=== PATIENT | female | born 1980 | race Caucasian/White ===

== ENCOUNTER 2017-10-16 19:40 | Emergency (ER) | payer MEDICAID, OTHER ==
[~2017-10-16] VITALS: Ht 170.2 cm; Wt 64.0 kg
[~2017-10-16 19:40] MED LIST: ACYC-113 PO; ALPR2TAB2 PO; HYDR-3307 PO; IBUPROFEN PO; ZOLP10TA PO
[2017-10-16 20:45] LABS: BASOPHILS # (AUTO) 0.04 x10^3/uL (0-0.1); BASOPHILS % (AUTO) 1 % (0-1); EOSINOPHILS # (AUTO) 0.09 x10^3/uL (0-0.4); EOSINOPHILS % (AUTO) 1 % (1-7); LYMPHOCYTES # (AUTO) 2.43 x10^3/uL (1-3.4); LYMPHOCYTES % (AUTO) 35 % (22-44); MD NO; MEAN CORPUSCULAR HEMOGLOBIN 30.3 pg (27.0-34.8); MEAN CORPUSCULAR HGB CONC 34.2 g/dL (32.4-35.8); MEAN CORPUSCULAR VOLUME 88.6 fL (80-100); MEAN PLATELET VOLUME 8.1 fL (7.4-10.4); MONOCYTES # (AUTO) 0.42 x10^3/uL (0.2-0.8); MONOCYTES % (AUTO) 6 % (2-9); NEUTROPHILS # (AUTO) 3.98 x10^3/uL (1.8-6.8); NEUTROPHILS % (AUTO) 57 % (42-75); PLATELET COUNT 317 x10^3/uL (130-400); RED BLOOD COUNT 4.76 x10^6/uL (3.82-5.3); RED CELL DISTRIBUTION WIDTH 13.2 % (9.6-15.2)
[2017-10-16 20:50] LABS: ALBUMIN 3.6 g/dL (3.4-5.0); ANION GAP 8 mmol/L (5-15); CALCIUM 9.1 mg/dL (8.5-10.1); CHLORIDE 109 mmol/L (98-107); SALICYLATE LEVEL 2.5 mg/dL (2.8-20.0)
[2017-10-16 20:55] LABS: ALANINE AMINOTRANSFERASE 27 U/L (12-78); ALKALINE PHOSPHATASE 61 U/L (45-117); BILIRUBIN,TOTAL 0.2 mg/dL (0.2-1.0); CREATININE 1.04 mg/dL (0.55-1.02); TOTAL PROTEIN 7.1 g/dL (6.4-8.2)
[2017-10-16 20:58] LABS: ACETAMINOPHEN < 2 mcg/mL (10-30)
[2017-10-16 21:03] LABS: CULTURE INDICATED? YES; MICROSCOPIC INDICATED
[2017-10-16 21:12] LABS: AMPHETAMINE SCREEN, URINE Positive (Negative); BARBITURATE SCREEN, URINE Negative (Negative); BENZODIAZEPINE SCREEN, URINE Negative (Negative); CANNABINOID SCREEN, URINE Negative (Negative); COCAINE SCREEN, URINE Negative (Negative); METHADONE SCREEN, URINE Negative (Negative); OPIATE SCREEN, URINE Negative (Negative)
[2017-10-16] MEDS ORDERED: ACETAMINOPHEN 325 MG TABLET PO PRN (23:30)
[2017-10-16] MEDS ORDERED: DOCUSATE 100 MG CAPSULE PO PRN (23:30)
[2017-10-17] MEDS ORDERED: NICOTINE 21 MG/24 HR PATCH.TD24 ONE (04:22)
[2017-10-17] MEDS: NICOTINE 21 MG/24 HR PATCH.TD24 TD SCH (04:25)
[2017-10-17] MEDS ORDERED: LORazepam 1MG TABLET ONE ×3 (10:00→21:16)
[2017-10-17] MEDS: LORazepam 1MG TABLET PO PRN ×3 (10:06→21:15)
[2017-10-18] MEDS ORDERED: NICOTINE 21 MG/24 HR PATCH.TD24 ONE (03:51)
[2017-10-18] MEDS: NICOTINE 21 MG/24 HR PATCH.TD24 TD SCH (03:52)
[2017-10-18] MEDS ORDERED: LORazepam 1MG TABLET ONE ×5 (03:53→21:44)
[2017-10-18] MEDS: LORazepam 1MG TABLET PO PRN ×5 (03:55→21:53)
[2017-10-19] MEDS ORDERED: LORazepam 1MG TABLET ONE ×2 (10:50→18:55)
[2017-10-19] MEDS: LORazepam 1MG TABLET PO PRN ×2 (10:55→18:58)
[2017-10-19] MEDS ORDERED: ZIPRASIDONE 20 MG INJ IM ONE ×2 (12:18→13:00)
[2017-10-19] MEDS ORDERED: ZIPRASIDONE 20 MG INJ IM PRN (13:30)
[2017-10-19] MEDS ORDERED: NICOTINE 21 MG/24 HR PATCH.TD24 ONE (18:59)
[2017-10-19] MEDS: NICOTINE 21 MG/24 HR PATCH.TD24 TD SCH (19:00)
[2017-10-20] MEDS ORDERED: LORazepam 1MG TABLET ONE ×2 (08:28→13:08)
[2017-10-20] MEDS: LORazepam 1MG TABLET PO PRN ×2 (08:40→13:14)
[2017-10-20] MEDS ORDERED: NICOTINE 21 MG/24 HR PATCH.TD24 ONE ×2 (18:41→20:09)
[2017-10-20] MEDS ORDERED: ZIPRASIDONE 20 MG INJ IM ONE (18:42)
[2017-10-20] MEDS ORDERED: OLANZAPINE 10 MG TABLET ONE (20:09)
[2017-10-20] MEDS: NICOTINE 21 MG/24 HR PATCH.TD24 TD SCH (20:35)
[2017-10-20] MEDS ORDERED: OLANZAPINE 10 MG TABLET PO SCH (21:00)
[2017-10-21 10:35] VITALS: BP 113/71
[2017-10-21] MEDS ORDERED: OLAN10TA9 PO (11:07)
== END 2017-10-21 12:13 | disposition home or self-care (01) ==
LOC: ED 22:38 → EDIP 23:08 → UNDOADMIN 23:08
DX: R45.851 Suicidal ideations (principal); F20.9 Schizophrenia, unspecified; F31.9 Bipolar disorder, unspecified; Z79.899 Other long term (current) drug therapy
CPT/HCPCS: 36415; 80053; 80307; 80329; 81001; 84703; 85025; 87086; 99284; J3486; 99285; G0480

== ENCOUNTER 2017-10-31 22:11 | Observation (INO) | payer MEDICAID ==
[~2017-10-31] VITALS: Ht 170.2 cm; Wt 63.2 kg
[~2017-10-31 22:11] MED LIST changes: +OLAN10TA9 PO
[2017-10-31 23:01] LABS: AMPHETAMINE SCREEN, URINE Negative (Negative); BARBITURATE SCREEN, URINE Negative (Negative); BENZODIAZEPINE SCREEN, URINE Negative (Negative); CANNABINOID SCREEN, URINE Negative (Negative); COCAINE SCREEN, URINE Negative (Negative); METHADONE SCREEN, URINE Negative (Negative); OPIATE SCREEN, URINE Negative (Negative)
[2017-10-31 23:03] LABS: BASOPHILS # (AUTO) 0.05 x10^3/uL (0-0.1); BASOPHILS % (AUTO) 1 % (0-1); EOSINOPHILS # (AUTO) 0.12 x10^3/uL (0-0.4); EOSINOPHILS % (AUTO) 2 % (1-7); LYMPHOCYTES # (AUTO) 2.53 x10^3/uL (1-3.4); LYMPHOCYTES % (AUTO) 36 % (22-44); MD NO; MEAN CORPUSCULAR HEMOGLOBIN 29.5 pg (27.0-34.8); MEAN CORPUSCULAR HGB CONC 33.3 g/dL (32.4-35.8); MEAN CORPUSCULAR VOLUME 88.4 fL (80-100); MEAN PLATELET VOLUME 7.7 fL (7.4-10.4); MONOCYTES # (AUTO) 0.47 x10^3/uL (0.2-0.8); MONOCYTES % (AUTO) 7 % (2-9); NEUTROPHILS # (AUTO) 3.87 x10^3/uL (1.8-6.8); NEUTROPHILS % (AUTO) 55 % (42-75); PLATELET COUNT 251 x10^3/uL (130-400); RED BLOOD COUNT 4.48 x10^6/uL (3.82-5.3); RED CELL DISTRIBUTION WIDTH 13.7 % (9.6-15.2)
[2017-10-31 23:14] LABS: ALBUMIN 3.4 g/dL (3.4-5.0); ANION GAP 5 mmol/L (5-15); CALCIUM 8.2 mg/dL (8.5-10.1); CHLORIDE 113 mmol/L (98-107); CREATININE 0.68 mg/dL (0.55-1.02); SALICYLATE LEVEL 1.9 mg/dL (2.8-20.0)
[2017-10-31 23:29] LABS: ACETAMINOPHEN < 2 mcg/mL (10-30)
[2017-11-01] MEDS ORDERED: POLYETHYLENE GLYCOL 17 GM PACKET PO PRN (08:00)
[2017-11-01 08:25] LABS: THYROID STIMULATING HORMONE 2.42 mIU/L (0.358-3.740)
[2017-11-01] MEDS ORDERED: OLANZAPINE 10 MG TABLET PO SCH (09:00)
[2017-11-01 17:11] VITALS: BP 116/70
[2017-11-01 19:33] VITALS: BP 123/80
[2017-11-01] MEDS: SENNA/DOCUSATE TABLET PO SCH (20:51)
[2017-11-01] MEDS: OLANZAPINE 10 MG TABLET PO SCH (21:08)
[2017-11-02 05:46] LABS: ALBUMIN 3.3 g/dL (3.4-5.0); ANION GAP 9 mmol/L (5-15); CALCIUM 8.8 mg/dL (8.5-10.1); CHLORIDE 111 mmol/L (98-107)
[2017-11-02 05:50] LABS: ALANINE AMINOTRANSFERASE 17 U/L (12-78); ALKALINE PHOSPHATASE 46 U/L (45-117); BILIRUBIN,TOTAL 0.3 mg/dL (0.2-1.0); CREATININE 0.66 mg/dL (0.55-1.02); TOTAL PROTEIN 6.3 g/dL (6.4-8.2)
[2017-11-02 06:41] LABS: BASOPHILS # (AUTO) 0.03 x10^3/uL (0-0.1); BASOPHILS % (AUTO) 1 % (0-1); EOSINOPHILS # (AUTO) 0.12 x10^3/uL (0-0.4); EOSINOPHILS % (AUTO) 2 % (1-7); LYMPHOCYTES # (AUTO) 1.77 x10^3/uL (1-3.4); LYMPHOCYTES % (AUTO) 33 % (22-44); MD NO; MEAN CORPUSCULAR HEMOGLOBIN 29.7 pg (27.0-34.8); MEAN CORPUSCULAR HGB CONC 33.5 g/dL (32.4-35.8); MEAN CORPUSCULAR VOLUME 88.6 fL (80-100); MEAN PLATELET VOLUME 7.9 fL (7.4-10.4); MONOCYTES # (AUTO) 0.31 x10^3/uL (0.2-0.8); MONOCYTES % (AUTO) 6 % (2-9); NEUTROPHILS # (AUTO) 3.13 x10^3/uL (1.8-6.8); NEUTROPHILS % (AUTO) 58 % (42-75); PLATELET COUNT 233 x10^3/uL (130-400); RED BLOOD COUNT 4.69 x10^6/uL (3.82-5.3); RED CELL DISTRIBUTION WIDTH 13.7 % (9.6-15.2)
[2017-11-02 08:08] VITALS: BP 108/70
[2017-11-02] MEDS: SENNA/DOCUSATE TABLET PO SCH (08:22)
[2017-11-02] MEDS: ACETAMINOPHEN 325 MG TABLET PO PRN (13:21)
[2017-11-02] MEDS ORDERED: LORazepam 1MG TABLET ONE (14:20)
[2017-11-02] MEDS: LORazepam 1MG TABLET PO PRN (14:22)
[2017-11-02] MEDS ORDERED: LORazepam 2 MG/ML, 1ML IM PRN (14:30)
[2017-11-02 19:35] VITALS: BP 105/68
[2017-11-02] MEDS: OLANZAPINE 10 MG TABLET PO SCH (20:49)
[2017-11-03 07:53] VITALS: BP 108/59
[2017-11-03] MEDS: SENNA/DOCUSATE TABLET PO SCH (08:24)
[2017-11-03] MEDS: LORazepam 1MG TABLET PO PRN ×3 (09:16→20:29)
[2017-11-03 19:26] VITALS: BP 102/56
[2017-11-03] MEDS: OLANZAPINE 10 MG TABLET PO SCH (20:30)
[2017-11-04 07:52] VITALS: BP 113/71
[2017-11-04] MEDS: LORazepam 1MG TABLET PO PRN ×2 (07:53→12:52)
[2017-11-04] MEDS: ACETAMINOPHEN 325 MG TABLET PO PRN (08:01)
[2017-11-04] MEDS: SENNA/DOCUSATE TABLET PO SCH (08:01)
[2017-11-04] MEDS ORDERED: ZIPRASIDONE 20 MG INJ IM ONE ×2 (16:28→16:30)
== END 2017-11-04 16:30 | disposition left against medical advice (07) ==
LOC: ED 22:41 → EDIP 11-01 06:17 → 2N 11-01 16:57
PROVIDERS: ADMIT Internal Medicine; ATTEND Internal Medicine
DX: R45.851 Suicidal ideations (principal); F25.9 Schizoaffective disorder, unspecified; F31.9 Bipolar disorder, unspecified; F41.9 Anxiety disorder, unspecified; F60.3 Borderline personality disorder; F17.200 Nicotine dependence, unspecified, uncomplicated
CPT/HCPCS: 36415; 80048; 80053; 80307; 80329; 82040; 84439; 84443; 84703; 85025; 93005; 99285; G0378; J3486; G0480

== ENCOUNTER 2020-09-03 21:25 | Emergency (ER) | payer MEDICAID ==
[~2020-09-03] VITALS: Ht 167.6 cm; Wt 86.6 kg
[~2020-09-03 21:25] MED LIST changes: -ACYC-113 PO; +ACYC200C13 PO; +HYDR-3248 PO; -HYDR-3307 PO
--- NOTE | 2020-09-03 21:39 | NUR ---
bib ems from home. per ems and family stated pt has history of depression, anxiety and various psych issues. pt started acting "like a 7 year old" non verbal, refused to answer questions. pt given 5mg im haldol en route, unable to get iv access. pt nonverbal and drowsy at this time. pt on coninuous pulse ox, seen by erp. will continue to monitor
[2020-09-03 21:55] LABS: BASOPHILS % (AUTO) 1 % (0-1); EOSINOPHILS % (AUTO) 2 % (1-7); LYMPHOCYTES % (AUTO) 29 % (22-44); MD NO; MEAN CORPUSCULAR HEMOGLOBIN 29.2 pg (27.0-34.8); MEAN CORPUSCULAR HGB CONC 33.8 g/dL (32.4-35.8); MEAN PLATELET VOLUME 8.3 fL (7.4-10.4); MONOCYTES % (AUTO) 9 % (2-9); NEUTROPHILS % (AUTO) 59 % (42-75); PLATELET COUNT 268 x10^3/uL (130-400); RED BLOOD COUNT 4.34 x10^6/uL (3.82-5.3); RED CELL DISTRIBUTION WIDTH 13.4 % (9.6-15.2)
[2020-09-03 22:07] LABS: ALANINE AMINOTRANSFERASE 55 U/L (12-78); ALBUMIN 3.1 g/dL (3.4-5.0); ANION GAP 6 mmol/L (5-15); CALCIUM 8.3 mg/dL (8.5-10.1); CHLORIDE 111 mmol/L (98-107); CREATININE 0.81 mg/dL (0.55-1.02); SALICYLATE LEVEL 2.3 mg/dL (2.8-20.0)
[2020-09-03 22:18] LABS: ALKALINE PHOSPHATASE 74 U/L (45-117); BILIRUBIN,TOTAL 0.3 mg/dL (0.2-1.0); TOTAL PROTEIN 5.8 g/dL (6.4-8.2)
--- NOTE | 2020-09-03 22:29 | NUR ---
javier dennis- [phone]. pt's ex- and poc at this time
--- NOTE | 2020-09-03 22:31 | NUR ---
pt's ex states that he is the only family she has at this time and lives with his and her son. 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 unknown medications. number put in chart at this time.
--- NOTE | 2020-09-03 23:23 | NUR ---
PT STILL NOT FOLLOWING COMMANDS AT THIS TIME, RESP EVEN/UNLABORED, UNABLE TO OBTAIN URINE AT THIS TIME. IN LINE OF SIGHT OF SITTER
--- NOTE | 2020-09-03 23:26 | NUR ---
ERP AWARE UNABLE TO OBTAIN URINE, STATES OK FOR PT TO METABOLIZE FIRST. WILL CONTINUE TO MONITOR
--- NOTE | 2020-09-04 00:11 | NUR ---
pt dozing intermittently, pt shakes head no when asking if she needs to use restroom. in line of sight of carmen
--- NOTE | 2020-09-04 01:49 | NUR ---
pt sleeping at this time, pt refusing to answer questions or cooperate at this time, continuous pulse ox in place, sitter in line of sight
--- NOTE | 2020-09-04 03:40 | NUR ---
pt more responsive, ambulated to restroom, states unable to urinate at this time
--- NOTE | 2020-09-04 03:52 | NUR ---
pt more responsive, talking with this rn, walter. 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 pt denies wanting to harm herself or others at this time. erp aware and to eval.
[2020-09-04 04:26] VITALS: BP 99/52
--- NOTE | 2020-09-04 05:15 | NUR ---
pt ambulates without assistance. per erp, no urine screen needed. pt denies si/hi, states feeling safe at home with son. pt provided taxi voucher and socks. pt verbilized understanding of d/c instructions
== END 2020-09-04 05:19 | disposition home or self-care (01) ==
LOC: ED 21:56
DX: F15.150 Other stimulant abuse with stimulant-induced psychotic disorder with delusions (principal); F15.129 Other stimulant abuse with intoxication, unspecified; F31.9 Bipolar disorder, unspecified; F20.9 Schizophrenia, unspecified
CPT/HCPCS: 36415; 80053; 80299; 80320; 80329; 84443; 84703; 85025; 99285; G0480